=== PATIENT | male | born 1960 ===

== ENCOUNTER 2025-01-16 06:24 | Day surgery (SDC) | payer BC, SELFPAY | END 2025-01-16 10:14 | disposition home or self-care (01) | LOC: GI 06:24 | PROVIDERS: ATTENDING PHYSICIAN Internal Medicine Gastroenterology | DX: K57.30 Diverticulosis of large intestine without perforation or abscess without bleeding (principal); K62.1 Rectal polyp; K64.8 Other hemorrhoids; Z86.0100 Personal history of colon polyps, unspecified | CPT/HCPCS: 45385; 88305 ==